=== PATIENT | female | born 1995 | race Caucasian/White ===

== ENCOUNTER 2017-07-09 06:43 | Inpatient (IN) | payer BC ==
[2017-07-09] MEDS ORDERED: MISOPROSTOL 200 MCG TAB PR (09:00)
[2017-07-09] MEDS ORDERED: CARBOPROST 250 MCG INJ IM (09:00)
[2017-07-09] MEDS ORDERED: OXYTOCIN 30 UNITS/LR 500 ML IV ×2 (09:00)
[2017-07-09] MEDS ORDERED: IBUPROFEN 600 MG TAB PO (09:00)
[2017-07-09] MEDS ORDERED: BUTORPHANOL 2 MG INJ IV (09:00)
[2017-07-09] MEDS ORDERED: LIDOCAINE 1% (MPF) 30 ML INJ INJ (09:00)
[2017-07-09] MEDS ORDERED: METHYLERGONOVINE 0.2 MG INJ IM (09:00)
[2017-07-09] MEDS: LACTATED RINGER'S 1,000 ML IV ×4 (09:44→22:12)
[2017-07-09] MEDS ORDERED: MINERAL OIL LIGHT 10 ML VIAL TOP (10:00)
[2017-07-09 11:13] LABS: ADD MAN DIFF? NO
[2017-07-09] MEDS: AMPICILLIN 2 GM/NS (PMX) 100 ML IVPB (11:15)
[2017-07-09 11:19] LABS: WHITE BLOOD COUNT 8.7 10^3/ul (4.8-10.8)
[2017-07-09 11:19] LABS: BASOPHILS % 0.2 % (0.0-2.0); EOSINOPHILS # 0.1 10^3/ul (0.0-0.5); EOSINOPHILS % 0.8 % (0.0-7.0); HEMATOCRIT 34.1 % (37.0-47.0); HEMOGLOBIN 11.9 g/dl (12.0-16.0); LYMPHOCYTES # 1.6 10^3/ul (0.8-2.9); LYMPHOCYTES % 18.9 % (18.0-55.0); MEAN CORPUSCULAR HEMOGLOBIN 29.8 pg (29.0-33.0); MEAN CORPUSCULAR HGB CONC 34.9 g/dl (32.0-37.0); MEAN CORPUSCULAR VOLUME 85.3 fl (72.0-104.0); MEAN PLATELET VOLUME 11.6 fl (7.4-10.4); MONOCYTE # 0.4 10^3/ul (0.3-0.9); NEUTROPHIL # 6.5 10^3/ul (1.6-7.5); NEUTROPHILS % 74.9 % (30.0-74.0); PLATELET COUNT 172 10^3/UL (140-415); RED CELL DISTRIBUTION WIDTH 13.1 % (11.5-14.5)
[2017-07-09 11:49] LABS: INR 0.96; PROTIME 12.9 Sec (11.9-14.9)
[2017-07-09 12:05] LABS: HEPATITIS B SURFACE ANTIGEN NEGATIVE (NEGATIVE)
[2017-07-09] MEDS ORDERED: FENTAnyl 2MCG/ML-ROPIV 0.2% 100 ML ×2 (12:46→20:44)
[2017-07-09 12:55] LABS: PARTIAL THROMBOPLASTIN TIME 28.2 Sec (25.0-35.0)
[2017-07-09] MEDS: ONDANSETRON 4 MG INJ IV (13:39)
[2017-07-09] MEDS: AMPICILLIN 1 GM/NS (PMX) 50 ML IVPB ×3 (15:14→22:57)
[2017-07-09 15:50] LABS: BARBITURATES Negative (NEGATIVE)
[2017-07-09 15:52] LABS: AMPHETAMINE/METHAMPHETAMINE Negative (NEGATIVE); BENZODIAZEPINES Negative (NEGATIVE); CANNABINOIDS Negative (NEGATIVE); COCAINE Negative (NEGATIVE); OPIATES Negative (NEGATIVE)
[2017-07-09 19:07] LABS: RAPID PLASMA REAGIN NONREACTIVE (NR)
[2017-07-09] MEDS ORDERED: NALOXONE (0.4 MG/ML) INJ IV (21:00)
[2017-07-09] MEDS ORDERED: ONDANSETRON 4 MG INJ IV (21:00)
[2017-07-09] MEDS ORDERED: DIPHENHYDRAMINE 50 MG INJ IV (21:00)
[2017-07-09] MEDS: FENTAnyl 2MCG/ML-ROPIV 0.2% 100 ML BAG EPI (21:03)
[2017-07-10] MEDS: OXYTOCIN 30 UNITS/LR 500 ML IV ×2 (02:52→03:38)
[2017-07-10] MEDS ORDERED: CARBOPROST 250 MCG INJ IM (03:30)
[2017-07-10] MEDS ORDERED: OXYTOCIN 30 UNITS/LR 500 ML IV (03:30)
[2017-07-10] MEDS ORDERED: METHYLERGONOVINE 0.2 MG INJ IM (03:30)
[2017-07-10] MEDS ORDERED: MISOPROSTOL 200 MCG TAB PR (03:30)
[2017-07-10] MEDS: IBUPROFEN 600 MG TAB PO ×4 (06:19→23:58)
[2017-07-10] MEDS: LANOLIN 7 GM TUBE TOP (06:20)
[2017-07-10] MEDS: LACTATED RINGER'S 1,000 ML IV* ×3 (07:58→19:01)
[2017-07-10] MEDS: OXYCODONE/ASPIRIN (4.88/325) TAB PO (20:23)
[2017-07-11] MEDS: LACTATED RINGER'S 1,000 ML IV* ×2 (03:01→11:01)
[2017-07-11] MEDS: OXYCODONE/ASPIRIN (4.88/325) TAB PO (04:21)
[2017-07-11] MEDS: IBUPROFEN 600 MG TAB PO ×4 (06:07→23:31)
[2017-07-11 10:04] LABS: ADD MAN DIFF? NO
[2017-07-11 10:06] LABS: BASOPHILS % 0.2 % (0.0-2.0); EOSINOPHILS # 0.2 10^3/ul (0.0-0.5); EOSINOPHILS % 1.6 % (0.0-7.0); HEMATOCRIT 29.6 % (37.0-47.0); HEMOGLOBIN 10.1 g/dl (12.0-16.0); LYMPHOCYTES # 2.9 10^3/ul (0.8-2.9); LYMPHOCYTES % 29.8 % (18.0-55.0); MEAN CORPUSCULAR HEMOGLOBIN 29.6 pg (29.0-33.0); MEAN CORPUSCULAR HGB CONC 34.1 g/dl (32.0-37.0); MEAN CORPUSCULAR VOLUME 86.8 fl (72.0-104.0); MEAN PLATELET VOLUME 11.2 fl (7.4-10.4); MONOCYTE # 0.5 10^3/ul (0.3-0.9); MONOCYTES % 5.3 % (0.0-13.0); NEUTROPHIL # 6.1 10^3/ul (1.6-7.5); NEUTROPHILS % 62.8 % (30.0-74.0); PLATELET COUNT 147 10^3/UL (140-415); RED BLOOD COUNT 3.41 10^6/ul (4.20-5.40); RED CELL DISTRIBUTION WIDTH 13.4 % (11.5-14.5)
[2017-07-11 10:06] LABS: WHITE BLOOD COUNT 9.8 10^3/ul (4.8-10.8)
[2017-07-12] MEDS: IBUPROFEN 600 MG TAB PO ×2 (05:37→12:00)
[2017-07-12] MEDS: DIPHTH/TET/ACEL PERTUSS (ADULT) 0.5 ML VIAL IM* (09:00)
== END 2017-07-12 16:20 | disposition home or self-care (01) | DRG 775 ==
LOC: OBT 06:43 → PP1 07-10 04:37 → L-D 06:44 → PP1 07-10 20:32 → OBT 08:33 → L-D 08:30
PROVIDERS: Obstetrics & Gynecology
PROC: 10E0XZZ Delivery of Products of Conception, External Approach (ICD-10-PCS; principal; 2017-07-10)
PROC: 0HQ9XZZ Repair Perineum Skin, External Approach (ICD-10-PCS; 2017-07-10)
PROC: 3E033VJ Introduction of Other Hormone into Peripheral Vein, Percutaneous Approach (ICD-10-PCS; 2017-07-10)
PROC: 0UQMXZZ Repair Vulva, External Approach (ICD-10-PCS; 2017-07-10)
DX: O69.81X0 Labor and delivery complicated by cord around neck, without compression, not applicable or unspecified (principal); O71.4 Obstetric high vaginal laceration alone; O70.0 First degree perineal laceration during delivery; Z3A.37 37 weeks gestation of pregnancy; Z37.0 Single live birth
CPT/HCPCS: 62319; 76818; 80307; 85025; 85610; 85730; 86592; 86900; 86901; 87340; 90715